=== PATIENT | male | born 1960 | race Caucasian/White ===

== ENCOUNTER 2021-06-27 17:00 | Outpatient (RCR) | payer BC, SELFPAY | END 2021-06-27 17:05 | disposition home or self-care (01) | LOC: PT 17:00 | PROVIDERS: PCP Nurse Practitioner Family; Visit Provider Orthopaedic Surgery Adult Reconstructive Orthopaedic Surgery | DX: M25.511 Pain in right shoulder (principal); M75.41 Impingement syndrome of right shoulder | CPT/HCPCS: 97010; 97014; 97033; 97035; 97110; 97163; 97164; G0283 ==

== ENCOUNTER 2024-01-02 12:20 | Outpatient (CLI) | payer BC, SELFPAY ==
[2024-01-02 16:27] LABS: Basophils % 0.6 % (0.1-2.0); Eosinophils # 0.2 K/mm3 (0.0-0.4); Eosinophils % 2.8 % (0.1-12.0); Hematocrit 41.5 % (42.0-52.0); Hemoglobin 14.3 g/dL (14.1-18.0); Lymphocytes # 3.4 K/mm3 (0.7-4.5); Lymphocytes % 51.4 % (10-50); Mean Corpuscular HGB Conc 34.5 g/dL (31.8-35.4); Mean Corpuscular Hemoglobin 30.1 pg (27.0-31.2); Mean Corpuscular Volume 87.2 fl (80-94); Mean Platelet Volume 10.6 fl (7.4-10.4); Monocytes # 0.6 K/mm3 (0.1-1.0); Monocytes % 8.5 % (1.7-9.3); Neutrophils # 2.5 K/mm3 (1.8-7.8); Neutrophils % 36.7 % (37.0-80.0); Platelet Count 73 K/mm3 (142-424); Red Blood Count 4.76 M/mm3 (4.60-6.20); Red Cell Distribution Width 12.8 % (11.5-17.5); White Blood Count 6.7 K/mm3 (4.8-10.8)
[2024-01-02 16:31] LABS: MANUAL DIFFERENTIAL MANUAL DIFFERENTIAL (MANUAL DIFF)
[2024-01-02 16:51] LABS: Alanine Aminotransferase 28 U/L (12-78); Albumin Level 4.4 g/dl (3.5-5.0); Albumin/Globulin Ratio 1.6 (1.1-1.8); Alkaline Phosphatase 86 U/L (38-126); Anion Gap 10.9 mEq/L (5-15); Aspartate Amino Transferase 33 U/L (17-59); Bilirubin,Total 1.1 mg/dl (0.2-1.3); Blood Urea Nitrogen 13 mg/dl (9-20); Calcium 9.6 mg/dl (8.4-10.2); Carbon Dioxide 27 mmol/L (22.0-30.0); Chloride 105 mmol/L (98-107); Chol/HDL Ratio 4.3 (1-3.5); Cholesterol 189 mg/dl (140-200); Estimated Glomerular Filt Rate 114 ml/min (>60); GFR (African American) 137 ML/MIN (>60); Globulin 2.8 g/dL (1.3-3.2); Glucose 89 mg/dl (74-100); HDL Cholesterol 44 mg/dl (40-60); Potassium 3.9 mmoL/L (3.5-5.1); Sodium 139 mmol/L (136-145); Total Protein,Serum 7.2 g/dl (6.3-8.2); Triglycerides 102 mg/dl (30-150); VLDL Cholesterol 20 mg/dL (0-40)
[2024-01-02 17:03] LABS: Direct LDL Cholesterol 117.55 mg/dL (100-129)
[2024-01-02 17:24] LABS: Prostate Specific Ag Screen 0.5 ng/ml (0.0-4.0)
[2024-01-02 18:28] LABS: Eosinophils % 4 % (0-3); Lymphocytes % 42 % (10-50); Monocytes % 5 % (2-9); Neutrophils % 49 % (42-76); Platelet Estimate Moderate Decrease; RBC Morphology Normal; Total Cells Counted 100
== END 2024-01-02 23:59 | disposition home or self-care (01) ==
LOC: LAB.DROPOF 01-03 12:21
PROVIDERS: PCP Family Medicine; Visit Provider Family Medicine
DX: E03.9 Hypothyroidism, unspecified (principal); I10 Essential (primary) hypertension
CPT/HCPCS: 80053; 80061; 84443; 85007; 85025; 85027; G0103

== ENCOUNTER 2025-01-05 09:52 | Outpatient (CLI) | payer BC, SELFPAY ==
[2025-01-05 18:03] LABS: Thyroid Stimulating Hormone 0.28 uIU/mL (0.465-4.68)
[2025-01-05 18:23] LABS: Hepatitis C Ab Qual. W/ RFX NEGATIVE (Negative)
--- OUTSIDE RECORDS SUMMARY | 2025-01-06 12:27 | XMS_ITS ---
Author Organization Unknown Medications Medication Instructions Effective Dates (start - stop) Status levothyroxine sodium 0.15 MG Oral Tablet [id number]:00:00.000+00:0 0 - Completed levothyroxine sodium 0.15 MG Oral Tablet [id number]:00:00.000+00:0 0 - Completed levothyroxine sodium 0.15 MG Oral Tablet [id number]:00:00.000+00:0 0 - Completed levothyroxine sodium 0.15 MG Oral Tablet [id number]:00:00.000+00:0 0 - Completed olmesartan medoxomil 20 MG O ral Tablet [id number]:00:00.000+00:0 0 - Completed olmesartan medoxomil 20 MG O ral Tablet [id number]:00:00.000+00:0 0 - Completed olmesartan medoxomil 20 MG O ral Tablet [id number]:00:00.000+00:0 0 - Completed olmesartan medoxomil 20 MG O ral Tablet [id number]:00:00.000+00:0 0 - Completed olmesartan medoxomil 20 MG O ral Tablet [id number]:00:00.000+00:0 0 - Completed Patient Care team information Name Category Status Period Participants - - Proposed period not known -
--- OUTSIDE RECORDS SUMMARY | 2025-01-06 12:27 | XMS_ITS | Clinical Summary ---
[facility] [address] [place] [address] Care Team Providers Care Cnc Service Technician Name Role Phone Oseas Cabrera Primary Care Provider Social History Tobacco Use Types Packs/Day Years Used Date Smoking Tobacco: Never Assessed Abuse Screen Answer Date Recorded Unsafe at Home or Work/School Not on file Feels Threatened by Someone? Not on file 04/2023 Does Anyone Keep You from Co ntacting Others or Doint Things Outside the Home? Not on file 03/28/2023 Physical Sign of Abuse Present Not on file 1 Housing Stability Answer Date Recorded Current Living Arrangements Not on file 03/18 Potentially Unsafe Housing Conditions Not on esau e 03/28/2023 Family and Community Support Answer Orlin e Recorded Help with Day-to-Day Activities Not on file 03/28/2023 Lonely or Isolated Not on file 03/28/2023 Employment Answer Date Recorded Do you want help finding or keeping work or a margaret b? Not on file 03/28/2023 Disabilities Answer Date Recorded Concentrating, Remembering, or Making Decisions Difficulty Not on file 03/28/2023 Doing Errands Independently Difficulty Not on fi le 03/28/2023 Education Answer Date Recorded Help with school or training? Not on file Preferred Language Not on file 03/28/2023 Sex and Gender Information Value Date Recorded Sex Assigned at Not on file Legal Sex Male 1:48 PM EST Gender Identity Not on file Sexual Orientation Not on file Plan of Treatment Health Maintenance Due Date Last Done Comments ANNUAL PHYSICAL 1960 HEPATITIS C SCREENING 1959 TDAP/TD VACCINES (1 - Tdap) 1978 COLOGUARD 02/14/2004 COLON CANCER SCREENING 5 YEAR SIGMOIDOSCOPY 02/14/2004 COLONOSCOPY 02/14/2004 COLORECTAL CANCER SCREENING 02/14/2004 CT COLONOGRAPHY 02/14/2004 FECAL OCCULT BLOOD TEST 02/14/2004 FIT Testing (1 year) 02/14/2004 Pneumococcal Vaccine 50+ (1 of 1 - PCV) 2009 ZOSTER VACCINE (1 of 2) 2009 AAA SCREEN ONCE 02/14/2024 COVID-19 Vaccine ( - season) 2024 INFLUENZA VACCINE 03/18/2025 Care Teams Cnc Service Technician Relationship Specialty Start Date End Date Oseas Cabrera DO [address] [place] [address] PCP - General 06/30/15
[2025-01-07 05:21] LABS: Hepatitis B Surface Antigen Negative (Negative)
== END 2025-01-05 23:59 | disposition home or self-care (01) ==
LOC: LAB.DROPOF 01-06 12:26
PROVIDERS: PCP Family Medicine; Visit Provider Family Medicine
DX: E03.9 Hypothyroidism, unspecified (principal); I10 Essential (primary) hypertension; Z11.4 Encounter for screening for human immunodeficiency virus [HIV]; Z11.59 Encounter for screening for other viral diseases
CPT/HCPCS: 80074; 84443; 87340; 87389

== ENCOUNTER 2025-05-13 10:15 | Outpatient (CLI) | payer BC, SELFPAY ==
[2025-05-13 18:48] LABS: Thyroid Stimulating Hormone 2.14 uIU/mL (0.465-4.68)
--- OUTSIDE RECORDS SUMMARY | 2025-05-18 10:54 | XMS_ITS | Clinical Summary ---
Author Organization [facility] yste Address [address] [place] [address] Care Team Providers Care Plastic Outfitter Name Role Phone CabreraOseas Primary Care Provider Social History Tobacco Use [...] of 2) 2009 AAA SCREEN ONCE 02/14/2024 INFLUENZA VACCINE 01/16/2025 COVID-19 Vaccine ( season) 2025 Care Teams Plastic Outfitter Relationship Specialty Start Date End Date Oseas Cabrera DO PCP - General 06/30/15
== END 2025-05-13 23:59 ==
LOC: LAB.DROPOF 05-18 10:16
PROVIDERS: PCP Family Medicine; Visit Provider Family Medicine
DX: E03.9 Hypothyroidism, unspecified (principal)
CPT/HCPCS: 84443